=== PATIENT | female | born 2000 | race Caucasian/White ===

== ENCOUNTER 2020-12-26 12:35 | Emergency (ER) | payer OTHER ==
[2020-12-26 15:45] VITALS: BP 111/75
== END 2020-12-26 15:44 | disposition home or self-care (01) ==
LOC: ED 12:35
DX: S09.90XA Unspecified injury of head, initial encounter (principal); Y04.8XXA Assault by other bodily force, initial encounter; Y99.0 Civilian activity done for income or pay